=== PATIENT | female | born 1990 | race Caucasian/White ===

== ENCOUNTER → 2017-09-29 12:33 | Outpatient (CLI) | payer OTHER, SELFPAY ==
--- NOTE | 2017-09-29 12:34 | DI.US.S_ITS ---
PROCEDURE: US OB >= 14 WEEKS FETUS INDICATIONS: Anatomy Scan OUTSIDE/PRIOR DATING DATA: Last menstrual period (LMP): 05/09/17. LMP-based estimated date of delivery (CARROLL): 02/13/18. First dating scan (date and location): 07/07/17. Estimated date of delivery (CARROLL) from first dating scan: 02/12/18. TECHNIQUE: Real-time scanning was performed of the fetus, with image documentation and biometric measurements. COMPARISON: [facility], , US OB <= 14 WEEKS FETUS, 08/11/2017, 15:41. [facility], , OB COMPLETE LESS THAN 14 WKS, 07/07/2017, 12:33. [facility], , US OB >= 14 WEEKS FETUS, 09/08/2017, 16:03. FINDINGS: General: A single living intrauterine gestation is present. Presentation: Breech. Placenta: Placental position is anterior, without previa. Lower placental edge 2 cm or less from internal cervical os qualifies as low lying placenta. Amniotic fluid index: 16.2 cm, normal range is 5-24 cm. heart rate: 152 beats per minute. Maternal cervical canal: 3.7 cm long. Normal lower limit is 2.5 cm. biometrics: Biparietal diameter: 4.9 cm 21 weeks zero days Head circumference: 19.3 cm 21 weeks 4 days Abdominal circumference: 17.4 cm 22 weeks 2 days Femur length: 3.5 cm 21 weeks one day Estimated gestational age from initial scan: 20 weeks 4 days Composite gestational age from present scan: 21 weeks 4 days Estimated weight and percentile: 446 g 95th percentile Measurement variability for biometric dating: +/- 7 days from 14 weeks to 15 weeks 6 days gestation, +/- 10 days from 16 weeks to 21 weeks 6 days gestation, +/- 2 weeks from 22 weeks to 27 weeks 6 days gestation, +/- 3 weeks for 28 weeks gestation or later. weight reference: 4500 g or EFW >90/95% is considered macrosomia or large for gestational age. EFW <10% is small for gestational age. EFW 5% or less is considered intra-uterine growth restriction. Anatomic survey: Neuro: Ventricles are non-dilated at less than 10 mm. Cisterna magna is normal at 3-11 mm. Cerebellum is normal in size and morphology. Nuchal skin fold: Normal at less than 6 mm between 14-21 weeks gestational age. Face: Nose and lips, facial profile are normal. Spine: No evidence for spina bifida. Heart: 4-chambered heart is present, with normal ventricular outflow tracts. Diaphragm: Diaphragm is intact. Stomach: Left-sided stomach is present. Kidneys: No hydronephrosis. Normal is less than 5 mm in 2nd trimester, less than 7 mm in 3rd trimester. Cord: 3-vessel cord has orthotopic insertion. Bladder: Normal in size. Extremities: All 4 extremities identified. IMPRESSION: 1. Single live intrauterine with ultrasound gestational age today is 21 weeks 4 days compared to 20 weeks 4 days from initial ultrasound. Ultrasound CARROLL is unchanged 02/12/18. 2. Anatomy is within normal limits. Dictated by: Grisel Mora M.D. on 09/29/2017 at 17:44 Approved by: Grisel Mora M.D. on 09/29/2017 at 17:46
== END ==
PROVIDERS: PCP Obstetrics & Gynecology; Visit Provider Obstetrics & Gynecology
DX: Z34.92 Encounter for supervision of normal pregnancy, unspecified, second trimester (principal); Z3A.21 21 weeks gestation of pregnancy
CPT/HCPCS: 76811

== ENCOUNTER → 2017-10-28 09:06 | Outpatient (CLI) | payer OTHER, SELFPAY ==
[2017-10-28 10:36] LABS: Hematocrit 35.3 % (36-46)
[2017-10-28 11:10] LABS: GTT (PREG) 1 Hour PP 50gm Dose 94 mg/dL (76-139)
== END ==
PROVIDERS: PCP Obstetrics & Gynecology; Visit Provider Obstetrics & Gynecology
DX: Z3A.22 22 weeks gestation of pregnancy (principal)
CPT/HCPCS: 36415; 82950; 85014; 85018; 86850

== ENCOUNTER → 2018-01-12 16:52 | Outpatient (CLI) | payer OTHER, SELFPAY ==
[2018-01-13 19:31] LABS: Strep Grp B PCR NEG for Grp B Strep
== END ==
PROVIDERS: PCP Obstetrics & Gynecology; Visit Provider Obstetrics & Gynecology
DX: Z3A.35 35 weeks gestation of pregnancy (principal)
CPT/HCPCS: 87653

== ENCOUNTER 2018-02-03 06:56 | Inpatient (IN) | payer OTHER, SELFPAY ==
[2018-02-03] MEDS: LACTATED RINGERS 1,000 ML 100 ML IV ×2 (07:45→13:04)
[2018-02-03] MEDS: OXYTOCIN PREMIX 30 UNIT/500 ML PLAST..BAG IV (07:45)
[2018-02-03 08:13] VITALS: BP 139/79
[2018-02-03 09:03] LABS: Add Manual Diff / Slide Review NO; Basophils Percent Auto 0.2 % (0-2); Eosinophils Percent Auto 0.8 % (2-4); Hematocrit 36.1 % (36-46); Hemoglobin 12.1 g/dL (12.0-16.0); Lymphocytes Percent Auto 19.2 % (25-40); Mean Corpuscular HGB Conc 33.6 % (30-36); Mean Corpuscular Hemoglobin 28.5 PG (26-34); Mean Corpuscular Volume 84.9 fL (80-100); Monocytes Percent Auto 5.7 % (3-14); Neutrophils Absolute Auto 6000 /uL (3000-5900); Neutrophils Percent Auto 74.1 % (50-75); Platelet Count 162 X10^3/uL (150-400); Red Blood Cell Count 4.26 X10^6/uL (4.0-5.2); White Blood Cell Count 8.1 X10^3/uL (4.5-11.0)
[2018-02-03] MEDS: DERMOPLAST SPRAY 20% 60 ML 1 SPRAY TOP (21:16)
[2018-02-03] MEDS: IBUPROFEN 600 MG TABLET PO (21:17)
[2018-02-04] MEDS: IBUPROFEN 600 MG TABLET PO ×2 (03:47→09:35)
[2018-02-04 05:09] LABS: Hematocrit 34.2 % (36-46); Hemoglobin 11.7 g/dL (12.0-16.0)
[2018-02-04] MEDS: DOCUSATE 250 MG CAPSULE PO (09:35)
[2018-02-04 10:53] VITALS: BP 121/82; PULSE 84; RESP 18; TEMP 36.7
--- NOTE | 2018-02-12 13:56 | PM.OBPRVD ---
Delivery date: 02/03/18 Intrapartal events: None Induction method: per pitocin protocol Delivery augmentation: rupture of membranes Delivery monitor: external FHT and external uterine Route of delivery: Episiotomy description: None Laceration description: None Estimated blood loss (mL): 100 Anesthesia type: Epidural Complications: None Narrative: The patient was complete and pushed for 14 min. At 5:07 p.m., a live male delivered spontaneously over an intact perineum. No nuchal cord. The remainder of the body delivered without difficulty and was placed on mom's abdomen. Pitocin was given in the IV fluids. The cord was double clamped and cut. Cord bloods were obtained. The placenta delivered intact with a 3 vessel cord at 5:15 p.m.. Fundus was massaged firm. No lacerations. Apgars 9 at 1 min and 9 at 5 min. . Weight 7 lb 9.84 oz. Epidural analgesia. Mom and stable to recovery. Estimated blood loss 100 cc. Plan for aftercare: To routine care
--- NOTE | 2018-02-12 15:08 | PM.OBDS.1 ---
Discharge Providers Date of admission: 02/03/18 06:56 Primary care physician: Britt Swartz MD Consults: 02/03/18 18:04 Consult to Rn Home Care Routine Comment: Discharge provider: Britt Swartz MD Discharge Date: 02/04/18 Summary Date Patient Seen: 02/04/18 Time Patient Seen: 08:45 Hospital Course: Patient is a 27-year-old 3 para 3 who presented on 02/03/2018 for induction of labor. She had a spontaneous vaginal delivery at 5:07 p.m. on 02/03/2018 without complication. She received an epidural for pain management. She had artificial rupture of membranes with clear amniotic fluid. Her course was unremarkable and she was discharged home on 02/04/2018 Peripartum Data Infant Delivery Method: Natural Vaginal Laceration description: None Episiotomy description: None Procedures: Epidural analgesia Pitocin induction of labor Spontaneous vaginal delivery complications: none Discharge Diagnosis (1) 39 weeks gestation of : Status: Acute (2) Normal spontaneous vaginal delivery: Status: Acute Status at Discharge Functional status at discharge: independent ambulation Overall status at discharge: patient is progressing back to baseline Time Spent with Patient Total time spent providing and/or coordinating discharge services: Less than 30 minutes Objective Labs Result Diagrams: 02/04/18 04:49 Discharge Plan Discharge Plan Patient Disposition: Home Discharge Med Rec/Prescriptions Prescriptions: No Action vit-iron fum-folic ac [Mynatal] 1 EACH capsule 1 cap PO QDAY Qty: 0 RF: 0 breast pump [Pump In Style Advanced] device .ROUTE .MEDSUPPLY Qty: 1 RF: 0 valacyclovir [Valtrex] 500 mg tablet 500 mg PO DAILY Qty: 30 RF: 0 Follow up/Referrals: Britt Swartz MD [Primary Care Provider] - 6 Weeks (call [phone] on Thursday 02/08 to make an appointment to see Dr Swartz in 6 weeks) Provider Discharge Instructions Diet: Diet as Tolerated Activity: No intercourse Skin/Wound/Dressing Care Report to your healthcare provider any signs of infection, such as:: chills, fever, increased pain and unusual drainage Visit Report/Discharge Packet Instructions: DI for Labor and Delivery, Vaginal Stand Alone Forms: Discharge: Care Visit Report Forms: Stroke Signs & Symptoms Discharge Data Primary Care Provider: Britt Swartz Attending Provider: Britt wSartz Admit Date/Time: 02/03/18 06:56 Discharges patient from system. Discharge Date/Time: 02/04/18 13:15
--- NOTE | 2018-02-12 15:11 | P.DS_ITS ---
Discharge Providers Date of admission: 02/03/18 06:56 Primary care physician: Britt Swartz MD Consults: 02/03/18 18:04 Consult to Audio Visual Engineer Routine Comment: Discharge provider: Britt Swartz MD Discharge Date: 02/04/18 Summary Date Patient Seen: 02/04/18 Time Patient Seen: 08:45 Hospital Course: Patient is a 27-year-old 3 para 3 who presented on 02/03/2018 for induction of labor. She had a spontaneous vaginal delivery at 5:07 p.m. on without complication. She received an epidural for pain management. She had artificial rupture of membranes with clear amniotic fluid. Her course was unremarkable and she was discharged home on 02/04/2018 Peripartum Data Delivery Method: Natural Vaginal Laceration description: None Episiotomy description: None Procedures: Epidural analgesia Pitocin induction of labor Spontaneous vaginal delivery complications: none Discharge Diagnosis (1) 39 weeks gestation of : Status: Acute (2) Normal spontaneous vaginal delivery: Status: Acute Status at Discharge Functional status at discharge: independent ambulation Overall status at discharge: patient is progressing back to baseline Time Spent with Patient Total time spent providing and/or coordinating discharge services: Less than 30 minutes Objective Labs Result Diagrams: 02/04/18 04:49 Discharge Plan Discharge Plan Patient Disposition: Home Discharge Med Rec/Prescriptions Prescriptions: No Action vit-iron fum-folic ac [Mynatal] 1 EACH capsule 1 cap PO QDAY Qty: 0 RF: 0 breast pump [Pump In Style Advanced] device .ROUTE .MEDSUPPLY Qty: 1 RF: 0 valacyclovir [Valtrex] 500 mg tablet 500 mg PO DAILY Qty: 30 RF: 0 Follow up/Referrals: Britt Swartz MD [Primary Care Provider] - 6 Weeks (call [phone] on Thursday 02/08 to make an appointment to see Dr Swartz in 6 weeks) Provider Discharge Instructions Diet: Diet as Tolerated Activity: No intercourse Skin/Wound/Dressing Care Report to your healthcare provider any signs of infection, such as:: chills, fever, increased pain and unusual drainage Visit Report/Discharge Packet Instructions: DI for Labor and Delivery, Vaginal Stand Alone Forms: Discharge: Care Visit Report Forms: Stroke Signs & Symptoms Discharge Data Primary Care Provider: Britt Swartz Attending Provider: Britt Swartz Admit Date/Time: 02/03/18 06:56 Discharges patient from system. Discharge Date/Time: 02/04/18 13:15
== END 2018-02-04 13:15 | disposition home or self-care (01) | DRG 807 ==
PROVIDERS: Admitting Provider Obstetrics & Gynecology; PCP Obstetrics & Gynecology; Visit Provider Obstetrics & Gynecology
DX: O80 Encounter for full-term uncomplicated delivery (principal); Z37.0 Single live birth; Z3A.39 39 weeks gestation of pregnancy
CPT/HCPCS: 01967; 36415; 59050; 59410; 85014; 85018; 85025; 86850; 86870; 86900; 86901; G0378; G0379; J2590